=== PATIENT | male | born 1935 | race Caucasian/White ===

== ENCOUNTER 2017-01-06 06:16 | Day surgery (SDC) | payer MEDICARE ==
[2017-01-02 15:56] VITALS: BMI 23.8
[~2017-01-06 06:16] MED LIST: ALPRAZolam 0.25 MG TAB PO PRN; ASPIRIN 325 MG TAB PO STA; SODIUM CHLORIDE 0.9% 1,000 ML in EMPTY BAG 1 BAG IV ONE
[2017-01-06 06:54] LABS: Basophils # (A) 0.1 k/uL (0-0.2); Basophils % (A) 1 %; CH 30.8; CHCM 33.2; Eosinophils # (A) 0.1 k/uL (0-0.7); Eosinophils % (A) 2 %; HCT 37.4 % (39.0-53.0); HDW 2.32; HGB 12.4 gm/dL (13.0-17.5); Luc # (Auto) 0.16; Luc % (Auto) 2; Lymphocytes # (A) 1.7 k/uL (1.0-4.8); Lymphocytes % (A) 20 %; MCH 30.9 pg (25.0-35.0); MCHC 33.2 g/dL (31.0-37.0); MCV 92.9 fL (80.0-100.0); Mean Platelet Volume 6.7; Monocytes # (A) 0.6 k/uL (0-1.0); Monocytes % (A) 7 %; Neutrophils # (A) 5.6 k/uL (1.3-7.7); Neutrophils % (A) 69 %; RBC 4.02 m/uL (4.30-5.90); RDW 14.3 % (11.5-15.5); WBC 8.2 k/uL (3.8-10.6)
[2017-01-06 07:04] VITALS: TEMP 97.9
[2017-01-06 07:08] LABS: Calcium 8.8 mg/dL (8.4-10.2); Potassium 5.2 mmol/L (3.5-5.1)
[2017-01-06] MEDS ORDERED: MIDAZOLAM 2 MG/2 ML VIAL IV ONE (07:54)
[2017-01-06] MEDS ORDERED: LIDOCAINE 2% INJ 20 MG/ML SQ ONE (07:54)
[2017-01-06] MEDS ORDERED: IODIXANOL 320 MG/ML 100 ML INTRAARTER ONE (08:16)
[2017-01-06] MEDS ORDERED: SODIUM CHLORIDE 0.9% 1,000 ML IV SCH (08:30)
--- NOTE | 2017-01-06 08:50 | IR ---
EXAMINATION TYPE: IR angio abdominal w runoff DATE OF EXAM: 01/06/2017 COMPARISON: NONE HISTORY: Peripheral vascular occlusive disease. Fluoroscopy was provided to the referring clinician. See dictated report from cardiology.
[2017-01-06 10:43] VITALS: RESP 18
[2017-01-06 13:30] VITALS: BP 107/50; PULSE 80
--- NOTE | 2017-01-07 10:45 | PCN ---
DATE OF SERVICE: 01/06/2017 PERFORMING PHYSICIAN: Asael Ordonez MD, cafeteria cashier. PROCEDURE PERFORMED: 1. An abdominal aortogram. 2. Bilateral iliac angiogram. 3. Right lower extremity runoff. INDICATIONS: This is a pleasant 81-year-old gentleman who sees Dr. Flores as an outpatient who was struggling with a nonhealing ulcer on the right overton. 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 We did an aortogram and right lower extremity runoff just for to check for any severe underlying PAD. I did not do left leg angiogram in view of the lower GFR. APPROACH: Right common femoral artery. COMPLICATIONS: None. LEVEL OF SEDATION: Moderate with sedation length of 24 minutes. PROCEDURE DESCRIPTION: After obtaining and informed consent, the patient was brought to the cardiac laboratory mechanical technician. The right common femoral artery was cannulated using micropuncture technique under ultrasound guidance. The micropuncture wire passed easily then I place a 6 Amharic sheath at the right common femoral artery. Subsequently, I did an abdominal aortogram using 5 Amharic pigtail catheter, which was initially placed at the level of the renal arteries then it was pulled into above the bifurcation of the aorta in to right and left common iliac arteries. After that I did right leg angiogram with injecting contrast through the sheath. The procedure was completed without any complication. SELECTIVE PERIPHERAL ANGIOGRAM: 1. The aorta is calcified with mild disease only. 2. Common iliac arteries: The right and left common iliac arteries are angiographically normal. 3. Internal iliac arteries: The right and left internal iliac arteries are angiographically normal. 4. External iliac arteries: The right and left external iliac arteries are angiographically normal. 5. Common femoral arteries: The right and left common femoral arteries are angiographically normal. 6. Right leg angiogram: The right profunda is angiographically normal. The right SFA appeared to have mild disease only. The right popliteal appeared to have mild disease only. There are 3 vessel runoff below the knee bilaterally. CONCLUSION: 1. Mild aortoiliac disease. 2. Mild right SFA disease. 3. Mild right popliteal disease. 4. Three-vessel runoff below the knee on the right side. POSTPROCEDURE MANAGEMENT WILL BE: 1. Medical treatment. 2. Follow up with the patient. SANDY
== END 2017-01-06 15:29 | disposition home or self-care (01) ==
LOC: CATHCVL 06:16
PROVIDERS: ATTEND Internal Medicine Interventional Cardiology
DX: I77.9 Disorder of arteries and arterioles, unspecified (principal); I70.0 Atherosclerosis of aorta; I73.9 Peripheral vascular disease, unspecified; E78.5 Hyperlipidemia, unspecified; I10 Essential (primary) hypertension; L97.819 Non-pressure chronic ulcer of other part of right lower leg with unspecified severity; I27.2 Other secondary pulmonary hypertension; I49.3 Ventricular premature depolarization; G47.33 Obstructive sleep apnea (adult) (pediatric); Z99.89 Dependence on other enabling machines and devices; I45.10 Unspecified right bundle-branch block; Z79.82 Long term (current) use of aspirin; Z79.891 Long term (current) use of opiate analgesic; Z79.51 Long term (current) use of inhaled steroids; Z79.899 Other long term (current) drug therapy; Z87.891 Personal history of nicotine dependence
CPT/HCPCS: 36200; 75625; 75716; 76937; 80048; 85025; 99152; C1894; C1769 ×4; J2001; J2250; Q9967